=== PATIENT | male | born 1950 | race Caucasian/White ===

== ENCOUNTER 2018-03-09 16:35 | Observation (INO) | payer BC ==
[2018-03-09 16:43] VITALS: BP 138/78; PULSE 106; TEMP 97.9; BMI 23.2
--- NOTE | 2018-03-09 16:58 | PDOC ---
History of Present Illness - General Chief Complaint: Chest Pain Stated Complaint: CHEST PAIN Time Seen by Provider: 03/09/18 16:49 History Source: Patient Exam Limitations: No Limitations - History of Present Illness Initial Comments: 03/09/18 16:59 67 year old man with no past medical history who presents with L sided chest pain radiating into the abdomen preceded by L arm numbness and tingling associated with shortness of breath and some diaphoresis but no nausea. Chest pain onset at 1000 while he was sitting in a chair. Chest pressure felt as though someone "sitting on chest" pressure progressively decrease over the course of 1.5 hours and resolved at 1200. The patient works at [employer] and at time of chest pain, he went to Medical unit at [facility]. BP at [facility] medical unit was 200 systolic. Patient left work and went to PCP who told patient he did not have time for appointment until 1500. Patient went home ate and slept. Went to see PCP at 1500 who told him to come to go to Cardiology. Cardiology sent the patient to ED. Patient has not taken any medications. He reports some recent history of viral URI.No chest pain, abdominal pain, shortness of breath. No nausea, vomiting, diarrhea, constipation. Never had similar symptoms. Patient has no other complaints at bedside. PMHX: as in HPI Meds: none Allergies: NKDA Tob: 10 cigarettes a day. Etoh: none Rec drugs: none PCP: [facility] Past History - Past Medical History Allergies/Adverse Reactions: Allergies Allergy/AdvReac Type Severity Reaction Status Date / Time No Known Allergies Allergy Verified 03/09/18 16:37 Home Medications: Ambulatory Orders NK [No Known Home Medication] 03/09/18 COPD: No HTN: Yes - Suicide/Smoking/Psychosocial Hx Smoking History: Current every day smoker Have you smoked in the past 12 months: Yes Number of Cigarettes Smoked Daily: 11 Information on smoking cessation initiated: No Hx Alcohol Use: No Drug/Substance Use Hx: No Review of Systems - Review of Systems Able to Perform ROS?: Yes Is the patient limited Greek proficient: No Constitutional: No: Chills, Diaphoresis, Fever HEENTM: No: Blurred Vision, Tinnitus Respiratory: No: Cough, Orthopnea, Shortness of Breath Cardiac (ROS): Yes: See HPI, Chest Pain ABD/GI: No: Constipated, Diarrhea, Nausea, Vomiting : No: Burning, Dysuria, Hematuria Neurological: No: Headache, Numbness, Tingling *Physical Exam - Vital Signs Last Vital Signs Temp Pulse Resp BP Pulse Ox 97.9 F 106 H 20 138/78 97 03/09/18 16:37 03/09/18 16:37 03/09/18 16:37 03/09/18 16:37 03/09/18 16:37 - Physical Exam Comments: 03/09/18 17:10 GENERAL: Awake, alert, and fully oriented, in no acute distress HEAD: No signs of trauma, normocephalic, atraumatic EYES: EOMI, sclera anicteric, conjunctiva clear ENT: oropharynx clear without exudates. Moist mucosa NECK: Normal ROM, supple LUNGS: No distress, speaks full sentences, clear to auscultation bilaterally HEART: Regular rate and rhythm, normal S1 and S2, no murmurs, rubs or gallops, peripheral pulses normal and equal bilaterally. ABDOMEN: Soft, nontender, normoactive bowel sounds. No guarding, no rebound. No masses EXTREMITIES : Normal inspection, Normal range of motion, no edema. No clubbing or cyanosis. NEUROLOGICAL: Cranial nerves II through XII grossly intact. Normal speech, no focal sensorimotor deficits SKIN: Warm, Dry, normal turgor, no rashes or lesions noted ED Treatment Course - LABORATORY CBC & Chemistry Diagram: 03/09/18 17:02 03/09/18 17:02 Medical Decision Making - Medical Decision Making 03/09/18 17:11 67 year old man with no past medical history who presents with L sided chest pain radiating into the abdomen preceded by L arm numbness and tingling associated with shortness of breath and some diaphoresis but no nausea. Chest pain onset at 1000 while he was sitting in a chair. Chest pressure felt as though someone "sitting on chest" pressure progressively decrease over the course of 1.5 hours and resolved at 1200. The patient works at [employer] and at time of chest pain, he went to Medical unit at [facility]. BP at [facility] medical unit was 200 systolic. Patient left work and went to PCP who told patient he did not have time for appointment until 1500. Patient went home ate and slept. Went to see PCP at 1500 who told him to come to ED. Patient has not taken any medications. He reports some recent history of viral URI.No chest pain, abdominal pain, shortness of breath. No nausea, vomiting, diarrhea, constipation. Never had similar symptoms. Patient has no other complaints at bedside. DDX including but not limited to: ACS vs angina vs COPD vs musculoskeletal W/U: - cbc, cmp, cardiac profile - cxr TX: - [id number] Scores: ED Course: Patient stable but anxious at bedside. 03/09/18 18:42 Trop: negative. Danette (cardiology) contacted as he had sent patient to ED to be admitted. Will discuss whether this patient necessitates admission. Will repeat trop in 50min for 3 hour repeat trop. CXR: unremarkable. 03/09/18 19:25 Nancy - recommends admitting the patient. 03/09/18 19:33 Noah contacted. For admission. *DC/Admit/Observation/Transfer Diagnosis at time of Disposition: Chest pain - Discharge Dispostion Disposition: HOME Condition at time of disposition: Stable Decision to Admit order: Yes - Referrals Referrals: Michel Harmon MD [Primary Care Provider] - - Patient Instructions Printed Discharge Instructions: DI for Chest Pain Additional Instructions: You were seen in the ED for complaints of chest pain. In the ED you were evaluated with labwork and imaging. Your results were unremarkable. There does not appear to be an acute need for immediate hospitalization. You are advised to follow up with your Primary Care Physician within 1 week. You were given a referral to Cardiology and are advised to follow up within 1 week. You were given a prescription for Return to the ED immediately if you experience worsening chest pain, palpitations, nausea, sweating, shortness of breath, travelling of chest pain into the back or into the arm or syncope. - Post Discharge Activity
[2018-03-09] MEDS ORDERED: ASPIRIN 81 MG CHEWABLE TABLETS PO ONE (17:08)
--- NOTE | 2018-03-09 17:17 | PDOC ---
Attending Attestation - Physicial Exam PE: 03/09/18 18:22 GENERAL: Well-appearing, well-nourished. No apparent distress. HEENT: Normocephalic, atraumatic. PERRL, EOM intact. CARDIOVASCULAR: Normal S1, S2. Regular rate and rhythm. PULMONARY: Clear to auscultation bilaterally. ABDOMEN: Soft, non-distended, non-tender. EXTREMITIES: Normal ROM in all four extremities. No gross deformities. SKIN: Warm, dry. No rash NEUROLOGICAL: No focal neurological deficits. <Keila Rowe - Last Filed: 03/09/18 18:22> - Resident Resident Name: Luda Vidal - ED Attending Attestation I have performed the following: I have examined & evaluated the patient, The case was reviewed & discussed with the resident, I agree w/resident's findings & plan, Exceptions are as noted - HPI HPI: 03/09/18 17: 67 yo male states he experienced chest pain, shortness of breath, left arm tingling at approximately 10 AM this morning while sitting in a chair. He does not have a history of chest pain and actually states that he has past medical history and takes no prescription medications. He did go see his doctor today who sent him to the ER. His PCP is Dr. Harmon Pain lasted about 90 minutes - Medical Decision Making 03/09/18 17:21 Social history is tobacco 1/2 pack daily 03/09/18 18:51 pt received aspirin ,first troponin negative 03/09/18 19:29 Risks age/gender/40 pk year tobacco use pt to be admitted to OBS tele primary doctor Dr Harmon 03/09/18 22:57 pt states he is leaving . he states he feels fine -both cardiac enzymes are negative -he is going AMA <Jamaica Gale - Last Filed: 03/09/18 22:58> Attestations - Attestations 03/09/18 18:23 Documentation prepared by Keila Rowe, acting as medical writer for Jamaica Gale MD. <Keila Rowe - Last Filed: 03/09/18 18:22>
[2018-03-09 17:23] LABS: BASO % 0.6 % (0-2.0); EOS % 1.2 % (0-4.5); HEMATOCRIT 49.9 % (35.4-49); HEMOGLOBIN 16.7 GM/dL (11.7-16.9); LYMPH % 30.9 % (8-40); MCH 33.4 pg (25.7-33.7); MCHC 33.5 g/dl (32.0-35.9); MEAN CELL VOLUME 99.6 fl (80-96); MONO % 8.8 % (3.8-10.2); NEUT % 58.5 % (42.8-82.8); PLATELET COUNT 223 K/MM3 (134-434); RBC 5.01 M/mm3 (4.00-5.60); RDW 13.5 % (11.9-15.9); WHITE BLOOD COUNT 7.8 K/mm3 (4.0-10.0)
[2018-03-09 17:41] LABS: INR 0.92 (0.83-1.09); PROTHROMBIN TIME (PATIENT) 10.8 SEC (9.7-13.0)
[2018-03-09 17:44] LABS: ACTIVATED PTT 27.1 SECONDS (25.2-36.5)
[2018-03-09 18:04] LABS: ALBUMIN 3.6 g/dl (3.4-5.0); ALK PHOS 73 U/L (45-117); ANION GAP 4 MMOL/L (8-16); BILIRUBIN,TOTAL 0.6 mg/dL (0.2-1); BLOOD UREA NITROGEN 16 mg/dL (7-18); CALCIUM 8.8 mg/dL (8.5-10.1); CHLORIDE 105 mmol/L (98-107); CO2 29 mmol/L (21-32); CREATININE 0.9 mg/dL (0.55-1.3); GLUCOSE,RANDOM 87 mg/dL (74-106); SGPT/ALT 21 U/L (13-61); SODIUM 138 mmol/L (136-145); TOT PROT 7.4 g/dl (6.4-8.2)
[2018-03-09 18:05] LABS: POTASSIUM 4.8 mmol/L (3.5-5.1); SGOT/AST 23 U/L (15-37)
--- NOTE | 2018-03-09 23:01 | PDOC ---
*Physical Exam - Vital Signs Last Vital Signs Temp Pulse Resp BP Pulse Ox 97.9 F 106 H 20 138/78 97 03/09/18 16:37 03/09/18 16:37 03/09/18 16:37 03/09/18 16:37 03/09/18 16:37 - Physical Exam Comments: 03/10/18 20:24 General Appearance: Nourished. No Apparent Distress HEENT: No Pharyngeal Erythema, Tonsillar Exudate, Tonsillar Erythema Neck: No Cervical Lymphadenopathy Respiratory/Chest: Lungs Clear, Normal Breath Sounds. No Crackles, Rales, Rhonchi, Wheezing Cardiovascular: Regular Rhythm, Regular Rate. No Murmur, Gallops, Rubs Gastrointestinal/Abdominal: Normal Bowel Sounds, Soft. No Guarding, Rebound, Tenderness Musculoskeletal: No CVA Tenderness Extremity: Normal Capillary Refill Integumentary: Normal Color, Dry, Warm Neurologic: Fully Oriented, Alert, Normal Mood/Affect, Normal Response, ED Treatment Course - LABORATORY CBC & Chemistry Diagram: 03/09/18 17:02 03/09/18 17:02 - ADDITIONAL ORDERS Additional order review: Laboratory Results 03/09/18 03/09/18 17:02 17:02 PT with INR 10.80 INR 0.92 PTT (Actin FS) 27.1 Sodium 138 Potassium 4.8 Chloride 105 Carbon Dioxide 29 Anion Gap 4 L BUN 16 Creatinine 0.9 Creat Clearance w eGFR > 60 Random Glucose 87 Calcium 8.8 Total Bilirubin 0.6 AST 23 ALT 21 Alkaline Phosphatase 73 Creatine Kinase 78 Troponin I < 0.02 Total Protein 7.4 Albumin 3.6 03/09/18 17:02 RBC 5.01 MCV 99.6 H MCHC 33.5 RDW 13.5 MPV 9.0 Neutrophils % 58.5 Lymphocytes % 30.9 Monocytes % 8.8 Eosinophils % 1.2 Basophils % 0.6 - Medications Given in the ED: ED Medications Discontinued Medications Generic Name Dose Route Start Last Admin Trade Name Freq PRN Reason Stop Dose Admin Aspirin 81 mg 03/09/18 17:08 03/09/18 17:19 Asa - PO 03/09/18 17:09 81 mg ONCE ONE Administration Progress Note - Progress Note Progress Note: The patient is a 67 year old male who presented for evaluation of chest pain. Lab results are unremarkable thus far. The patient is pending admission. Medical Decision Making - Medical Decision Making 03/10/18 00:26 Note: The patient insists on leaving the emergency dept and is signing out against medical advice. The patient understands the risks and complications that may result from the refusal of medical care and admission which includes and permanent disability. The patient has the mental capacity of understanding the risks of refusing care and is capable of making an informed decision. The patient was instructed to return to the emergency department should symptoms change or condition worsen. The patient signed the Against Medical Advice form. *DC/Admit/Observation/Transfer Diagnosis at time of Disposition: Chest pain - Discharge Dispostion Disposition: AGAINST MEDICAL ADVICE Condition at time of disposition: Stable - Referrals - Patient Instructions - Post Discharge Activity
[2018-03-10] MEDS ORDERED: ASPIRIN COATED 81 MG TABLET.EC PO SCH (10:00)
[2018-03-10] MEDS ORDERED: HEPARIN NA (PORCINE) 5,000 UNITS/ML 1ML VIAL SQ SCH (10:00)
--- NOTE | 2018-03-10 15:15 | EKG ---
Test Reason : Blood Pressure : / mmHG Vent. Rate : 093 BPM Atrial Rate : 093 BPM P-R Int : 152 ms QRS Dur : 092 ms QT Int : 352 ms P-R-T Axes : 069 059 067 degrees QTc Int : 437 ms NORMAL SINUS RHYTHM MINIMAL VOLTAGE CRITERIA FOR LVH, MAY BE NORMAL VARIANT BORDERLINE ECG NO PREVIOUS ECGS AVAILABLE Confirmed by CLARITA SHEETS MD ([id number]) on 03/10/2018 3:14:57 PM Referred By: Confirmed By:CLARITA SHEETS MD
--- NOTE | 2018-03-10 18:42 | HP ---
Admitting History and Physical - Smoking History Smoking history: Current every day smoker Have you smoked in the past 12 months: Yes Aproximately how many cigarettes per day: 11 - Alcohol/Substance Use Hx Alcohol Use: No Home Medications - Allergies Allergies/Adverse Reactions: Allergies Allergy/AdvReac Type Severity Reaction Status Date / Time No Known Allergies Allergy Verified 03/09/18 16:37 - Home Medications Home Medications: Ambulatory Orders NK [No Known Home Medication] 03/09/18 Physical Examination Vital Signs: Vital Signs Temperature 97.9 F 03/09/18 16:37 Pulse Rate 106 H 03/09/18 16:37 Respiratory Rate 20 03/09/18 16:37 Blood Pressure 138/78 03/09/18 16:37 O2 Sat by Pulse Oximetry (%) 97 03/09/18 16:37 Labs: CBC, BMP 03/09/18 17:02 03/09/18 17:02
== END 2018-03-10 01:38 | disposition left against medical advice (07) ==
LOC: JER 16:35 → JERBED 19:34
PROVIDERS: ADMIT Internal Medicine; ATTEND Internal Medicine
DX: R07.9 Chest pain, unspecified (principal); R06.02 Shortness of breath; R20.0 Anesthesia of skin; R20.2 Paresthesia of skin; F17.210 Nicotine dependence, cigarettes, uncomplicated
CPT/HCPCS: 36415; 71045-TC-FY; 80053; 82550; 84484; 85025; 85610; 85730; 93005; 93010; 99282-25; G0378